=== PATIENT | female | born 1970 | race Caucasian/White ===

== ENCOUNTER 2016-12-29 14:10 | Emergency (ER) | payer MEDICAID ==
[~2016-12-29 14:10] MED LIST: ALBUTEROL SULF8.5 G2 IH; ALBUTEROL0.83 MG/ML INH; ARIXTRA2.5 MG/0.5 SQ; ASPIRIN325 MG PO; CALCIUM + D T1 UDTAB PO; CLARITIN10 M2 PO; CLARITIN10 M6 PO; CYCLOBENZAPRINE10 M1 PO; DETROL LA2 MG PO; DETROL PO; DETROL1 MG PO; DIAZEPAM10 MG; FLEXERIL10 MG PO; LEVAQUIN750 M1 PO; METHOTREXATE2.5 MG; MILK OF MAGNESIA PO; MOBIC15 MG; MOBIC7.5 M2 PO; MYCOSTATIN15 GM TP; NAPROSYN500 MG PO; NEXIUM20 M1 PO; NEXIUM20 MG PO; NORCO 5-325 TA1 EACH PO; NORCO 5/325 TAB1 TAB PO; NORCO 7.5/3251 TAB PO; NUCYNTA50 MG PO; PHENERGAN W/CO120 ML PO; PRILOSEC20 M1 PO; PROVENTIL HFA6.7 G1 INH; PROVENTIL HFA6.7 GM IH; SANDIMMUNE PO; SANDIMMUNE100 MG PO; SENOKOT-S TABLE1 TAB PO; SINGULAIR10 M1 PO; SINGULAIR10 MG PO; TOVIAZ4 MG/TAB PO; TYLENOL325 MG PO; ULTRAM50 MG PO; VANCOMYCIN1 GM/VIA2 IV; VICODIN 5/500 T1 TAB PO; VITAMIN D350000 UNI1 PO; XANAX0.25 MG PO; XARELTO15 M1 PO; XARELTO20 M1 PO; [UNRECOGNIZED DRUG - OTHER]; [UNRECOGNIZED DRUG - OTHER] IV; [UNRECOGNIZED DRUG - OTHER] TP; [UNRECOGNIZED DRUG - REMARK] PO
[2016-12-29] MEDS ORDERED: NORCO 5-325 TA1 EACH PO ×2 (14:29→15:25)
[2017-05-06] MEDS ORDERED: NORCO 5/3251 TAB PO (01:34)
[2017-05-06] MEDS ORDERED: ZOFRAN4 M2 PO (01:34)
== END 2016-12-29 15:35 ==
LOC: EDMED 14:10
DX: J06.9 Acute upper respiratory infection, unspecified (principal); R07.89 Other chest pain; J45.909 Unspecified asthma, uncomplicated; K21.9 Gastro-esophageal reflux disease without esophagitis; Z90.49 Acquired absence of other specified parts of digestive tract; Z90.89 Acquired absence of other organs; Z87.891 Personal history of nicotine dependence; Z79.51 Long term (current) use of inhaled steroids; Z79.899 Other long term (current) drug therapy

== ENCOUNTER 2017-02-25 00:01 | Emergency (ER) | payer MEDICAID ==
[2017-02-25] MEDS ORDERED: HYDROCORTISON28.4 G9 TP (01:08)
[2017-05-06] MEDS ORDERED: NORCO 5/3251 TAB PO (01:34)
[2017-05-06] MEDS ORDERED: ZOFRAN4 M2 PO (01:34)
== END 2017-02-25 01:15 ==
LOC: EDMED 00:01
DX: R21 Rash and other nonspecific skin eruption (principal); Z86.718 Personal history of other venous thrombosis and embolism; Z87.891 Personal history of nicotine dependence